=== PATIENT | female | born 1955 | race Caucasian/White ===

== ENCOUNTER → 2018-01-12 21:33 | Outpatient (CLI) | payer BC, SELFPAY ==
[2018-01-12 21:54] LABS: AST(SGOT) 24 U/L (15-37); Alanine Aminotransfer ALT/SGPT 28 U/L (13-56); Albumin, Serum 4.1 g/dL (3.2-5.0); Alkaline Phosphatase 60 U/L (45-117); Anion Gap 7 (5-15); BUN 26 mg/dL (7-18); BUN/Creat Ratio 26.5 RATIO (10-20); Chloride 103 mmol/L (98-107); Cholesterol 163 mg/dL (200); Creatinine, Serum 0.98 mg/dL (0.55-1.02); EST Glomerular Filtration Rate 61 mL/min (>60); Est Glom Filt Rate - Afr Amer 74 mL/min (>60); Globulin 4.1 g/dL (2.2-4.2); Glucose 89 mg/dL (74-106); High Density Lipoprotein 51 mg/dL; Potassium 4.4 mmol/L (3.5-5.1); Protein, Total 8.2 g/dL (6.4-8.2); Sodium Level 139 mmol/L (136-145); Triglycerides 109 mg/dL; Very Low Density Lipoprotein 22 mg/dL (5-40)
== END ==
PROVIDERS: Visit Provider Nurse Practitioner
DX: I10 Essential (primary) hypertension (principal); E78.1 Pure hyperglyceridemia
CPT/HCPCS: 80053; 80061

== ENCOUNTER → 2019-04-05 21:55 | Outpatient (CLI) | payer MEDICARE, SELFPAY ==
[2019-04-05 18:37] VITALS: BMI 31.5
[2019-04-05 22:00] LABS: Absolute Lymphocyte Count 1.97 X10^3/uL (0.83-4.51); Absolute Neutrophil Count 4.7 X10^3/uL (2.0-7.7); Basophil# 0.05 X10^3/uL; Basophil% 0.7 % (0-1); Eosinophil# 0.15 X10^3/uL; Hematocrit 41.8 % (37-47); Hemoglobin 13.4 g/dL (12.0-15.0); Lymphocyte # 1.97 X10^3/ul (4.0); Lymphocyte % 26.2 % (19-41); Mean Corp Hgb Conc 32.1 g/dL (32-36); Mean Corpuscular Volume 90.5 fL (81-99); Mean Platelet Vol. 10.9 fl (6.2-12.0); Monocyte# 0.63 X10^3/uL; Monocyte% 8.4 % (0-10); NRBC Flagged by Analyzer 0 % (0-5); Neutrophil # 4.69 X10^3/uL (2.7-7.7); Neutrophil % 62.4 % (47-70); Platelet Count 277 K/mm3 (150-450); RBC Distribution Width CV 12.7 % (11.6-14.6); RBC Distribution Width SD 41.8 fl (35.1-43.9); Red Blood Count 4.62 M/mm3 (4.2-5.4); White Blood Count 7.5 K/mm3 (4.4-11.0)
[2019-04-05 22:22] LABS: ALB/GLOB Ratio 1.1 RATIO (0.9-2.4); AST(SGOT) 20 U/L (15-37); Alanine Aminotransfer ALT/SGPT 28 U/L (13-56); Alkaline Phosphatase 39 U/L (45-117); Anion Gap 7 (5-15); BUN 26 mg/dL (7-18); BUN/Creat Ratio 27.4 RATIO (10-20); Chloride 105 mmol/L (98-107); Cholesterol 169 mg/dL (200); Creatinine, Serum 0.95 mg/dL (0.55-1.02); EST Glomerular Filtration Rate 63 mL/min (>60); Est Glom Filt Rate - Afr Amer 76 mL/min (>60); Globulin 3.6 g/dL (2.2-4.2); Glucose 115 mg/dL (74-106); High Density Lipoprotein 56 mg/dL; Potassium 4.4 mmol/L (3.5-5.1); Protein, Total 7.6 g/dL (6.4-8.2); Sodium Level 140 mmol/L (136-145); Triglycerides 131 mg/dL; Very Low Density Lipoprotein 26 mg/dL (5-40)
== END ==
PROVIDERS: Family Provider Nurse Practitioner; PCP Nurse Practitioner; Referring Provider Nurse Practitioner; Visit Provider Nurse Practitioner
DX: E78.1 Pure hyperglyceridemia (principal); I10 Essential (primary) hypertension
CPT/HCPCS: 80053; 80061; 85025

== ENCOUNTER → 2019-05-17 14:13 | Outpatient (CLI) | payer MEDICARE, SELFPAY ==
[2019-04-05 18:37] VITALS: BMI 31.5
--- NOTE | 2019-05-17 14:27 | RAD_ITS ---
HISTORY: Neck pain TECHNIQUE: Cervical spine 3 views Number of images including paperwork: 3 COMPARISON: None FINDINGS: VERTEBRAE: No acute fracture. VERTEBRAL ALIGNMENT: No traumatic subluxation. Approximate 2 mm of anterolisthesis of C3 on C4 and C4 on C5. Straightening of the cervical spine. DISKS AND JOINTS: Moderate disc space narrowing at C5-6 and C6-7. Facet arthropathy. SOFT TISSUES: Unremarkable paraspinous soft tissues. RAD/Cerv Spine 2 or 3 Views IMPRESSION: 1. No acute osseous abnormality. 2. Loss of normal cervical lordosis may be related to positioning or muscle spasm. 3. Cervical spondylosis. at [id number] Reported and signed by: Patricia Galvin MD Electronically Signed: Patricia Galvin MD at 22:47 EST Tel , Service support ,
== END ==
PROVIDERS: Family Provider Nurse Practitioner; PCP Nurse Practitioner; Referring Provider Anesthesiology Pain Medicine; Visit Provider Anesthesiology Pain Medicine
DX: M54.2 Cervicalgia (principal)
CPT/HCPCS: 72040

== ENCOUNTER → 2019-07-19 12:43 | Outpatient (CLI) | payer MEDICARE, SELFPAY ==
[2019-04-05 18:37] VITALS: BMI 31.5
--- NOTE | 2019-07-19 13:00 | RAD_ITS ---
STUDY: X-RAY - RIGHT KNEE REASON FOR EXAM: Increasing knee pain, no specific injury. TECHNIQUE: 4 view(s) of the knee. COMPARISON: None. FINDINGS: There is osteopenia. Normal visualized distal femur. Normal visualized proximal tibia and fibula. Normal proximal tibiofibular articulation. Normal medial femorotibial compartment. There is a small marginal osteophyte of the lateral tibial plateau and mild joint space narrowing of the lateral femorotibial compartment. Normal patellofemoral articulation. The soft tissue structures are unremarkable. RAD/Knee 4 or More Views IMPRESSION: Mild arthrosis of the lateral femorotibial compartment. Osteopenia. Electronically Signed: Eliseo Chand MD at 13:54 EST Tel , Service support ,
== END ==
PROVIDERS: PCP Nurse Practitioner; Referring Provider Anesthesiology Pain Medicine; Visit Provider Anesthesiology Pain Medicine
DX: M25.569 Pain in unspecified knee (principal)
CPT/HCPCS: 73564

== ENCOUNTER 2019-08-02 09:20 | Day surgery (SDC) | payer MEDICARE, SELFPAY ==
[2019-04-05 18:37] VITALS: BMI 31.5
[2019-08-02] VITALS (17 sets, daily range): BP systolic 90–162; BP diastolic 57–107; PULSE 64–87; RESP 16; TEMP 36.3–37.1; O2SAT 92–99; BMI 28.6
[2019-08-02] MEDS: Lactated Ringers 1,000 ML 100 ML IV ×2 (10:06→15:44)
[2019-08-02] MEDS: Cefazolin 2 GM in 0.9% Normal Saline 100 ML IV (11:31)
--- NOTE | 2019-08-02 11:50 | RAD_ITS ---
STUDY: X-RAY - LUMBAR SPINE REASON FOR EXAM: Female, 63 years old. INSERTION SPINAL CORD STIMULATOR TECHNIQUE: 2 intraoperative view(s) of the lumbar spine were obtained. COMPARISON: None FINDINGS: AP and lateral intraoperative views were performed as patient has undergone insertion of a spinal cord stimulator. Tips are noted at T8. No complications noted. RAD/Lumbar Spine 2 or 3 Views IMPRESSION: Insertion of a spinal cord simulator free of complication Electronically Signed: Devaughn Reed MD at 13:43 EST , Service support ,
[2019-08-02] MEDS: Bupiv/Epi 0.25% 30 ML Vial ×2 (11:58)
[2019-08-02] MEDS: Gabapentin 600 MG Tablet PO (15:26)
[2019-08-02] MEDS: HYDROmorphone 1 MG/ML Syringe 2 MG IV (15:28)
== END 2019-08-02 18:44 | disposition home or self-care (01) ==
LOC: SDC 09:20 → AC 09:21
PROVIDERS: PCP Nurse Practitioner; Referring Provider Anesthesiology Pain Medicine; Visit Provider Anesthesiology Pain Medicine
PROC: (CPT 63685; principal; 2019-08-02 10:15)
DX: M54.16 Radiculopathy, lumbar region (principal); G35 Multiple sclerosis; G89.4 Chronic pain syndrome; M54.17 Radiculopathy, lumbosacral region; M96.1 Postlaminectomy syndrome, not elsewhere classified; M51.36 Other intervertebral disc degeneration, lumbar region; M51.37 Other intervertebral disc degeneration, lumbosacral region
CPT/HCPCS: 63650 ×2; 63685; 72100; 76000; C1778; C1820; J7120; J2405

== ENCOUNTER → 2019-08-07 13:21 | Outpatient (CLI) | payer MEDICARE, SELFPAY ==
[2019-08-02 10:00] VITALS: BMI 28.6
--- NOTE | 2019-08-07 13:25 | VDLE_ITS ---
Reason For Study: Swelling RIGHT GSV is normal. CFV is compressible, spontaneous, phasic, competent and demonstrates normal augmentation. FV is compressible, spontaneous, phasic, competent and demonstrates normal augmentation. POP V is compressible, spontaneous, phasic, competent and demonstrates normal augmentation. T/P Trunk is compressible. PTV is compressible. RT PerV is compressible. Procedure Exam performed in department. A preliminary report was called and/or faxed to [facility]. Interpretation Summary Deep veins of the right lower extremity are patent and compressible segmentally. There is no evidence of right lower extremity deep vein thrombosis. Valvular competence appears intact within the proximal deep venous system on the right . The right great saphenous vein appears patent and compressible segmentally. Ordering Physician: Alcon Moreno Referring Physician: Marie Tejeda Performed By: Janeen Shi RVT
== END ==
PROVIDERS: PCP Nurse Practitioner; Referring Provider Anesthesiology Pain Medicine; Visit Provider Anesthesiology Pain Medicine
DX: M79.89 Other specified soft tissue disorders (principal)
CPT/HCPCS: 93971

== ENCOUNTER → 2019-10-10 16:39 | Outpatient (CLI) | payer MEDICARE, SELFPAY ==
[2019-08-02 10:00] VITALS: BMI 28.6
--- NOTE | 2019-10-10 16:44 | RAD_ITS ---
STUDY: X-RAY - RIGHT SHOULDER REASON FOR EXAM: Female, 64 years old. PAIN IN RIGHT SHOULDER FOR ABOUT 2 MONTHS. NO KNOWN INJURY. TECHNIQUE: 4 view(s) of the shoulder. COMPARISON: None. FINDINGS: Normal glenohumeral articulation. There is hypertrophic osteoarthrosis of the acromioclavicular joint with inferior osseous spur formation. Normal acromion. Normal humeral head and visualized proximal humerus. The soft tissue structures are unremarkable. There is no demonstrated fracture. Normal visualized pulmonary apex. RAD/Shoulder min 2 Views IMPRESSION: No acute fracture or dislocation. Degenerative changes of the AC joint. Electronically Signed: Seymour Malhotra MD at 17:08 EDT , Service support ,
== END ==
PROVIDERS: PCP Nurse Practitioner; Visit Provider Anesthesiology Pain Medicine
DX: M25.519 Pain in unspecified shoulder (principal)
CPT/HCPCS: 73030

== ENCOUNTER → 2019-12-19 09:38 | Outpatient (CLI) | payer MEDICARE, SELFPAY ==
[2019-12-06 07:52] VITALS: BMI 28.6
--- NOTE | 2019-12-19 09:39 | RAD_ITS ---
STUDY: X-RAY - LUMBAR SPINE REASON FOR EXAM: Female, 64 years old. CONTINUED LBP POST OP TECHNIQUE: 4 view(s) of the lumbar spine were obtained. COMPARISON: There are 10/01/2019 FINDINGS: There is straightening of the normal lumbar lordosis. There is severe dextroscoliosis. There is been a lumbar spine fusion and laminectomy L3-L5. There is multilevel degenerative change. There is a suggestion of loss of height at the level of L5. Flexion-extension views are provided. There is no significant change in the visualized alignment in flexion and extension and neutral views provided. There is multilevel spondylosis. Baclofen type catheter along the right pelvis with the leads extending to the thoracic spine partially visualized on this study. One terminates approximately the level of T11-T12 the other extends further up the thoracic spine. RAD/L/S Spine Min 4 Views IMPRESSION: Lumbar spine fusion. No visualized instability with flexion and extension views provided. Dextroscoliosis lumbar spine fusion laminectomy. Baclofen type pump. Summation of shadows versus loss of height L5 recommend correlation with history. Electronically Signed: Lesa Armendariz MD at 6:59 EDT Tel , Service support ,
== END ==
PROVIDERS: PCP Nurse Practitioner; Referring Provider Orthopaedic Surgery; Visit Provider Orthopaedic Surgery
DX: M54.5 Low back pain (principal)
CPT/HCPCS: 72110

== ENCOUNTER → 2020-05-14 14:51 | Outpatient (CLI) | payer MEDICARE, SELFPAY ==
[2019-12-19 10:57] VITALS: BMI 28.6
--- NOTE | 2020-05-14 14:55 | CT_ITS ---
ACR Level 3 findings have been noted. An addendum which confirms receipt of the report will follow. STUDY: CT LUMBAR SPINE WITHOUT CONTRAST REASON FOR EXAM: Female, 64 years old. BACK PAIN RADIATING TO LEFT. RADIATION DOSAGE (If Supplied By Facility): CTDIvol = ( 17.62 ) mGy, DLP = ( 591.48 ) mGycm TECHNIQUE: The patient was scanned in a multi detector CT scanner. High resolution transaxial imaging was performed. Images were obtained from to . Sagittal and coronal images were reconstructed. Individualized dose optimization techniques were used for this CT. COMPARISON: X-ray dated 12/19/2019 and 08/02/2019. FINDINGS: Normal lumbar lordosis. There is moderate dextroscoliosis centered at L2/L3. T11/T12: There is mild depression of superior endplate of T11. There is neural stimulator device with the left electrodes located at the left epidural space and left paraspinous soft tissues (sagittal image #[id number] series [id number]). This electrode has inferiorly migrated in comparison with prior examination in July 2019. The right wire is directed superiorly with the electrode collimated off the [id number]. T12/L1: There is mild disc space narrowing and endplates spondylosis. There is mild depression of superior endplate of T12. There is no demonstrated central canal or foraminal stenosis. There is moderate compression fracture at L1, grossly unchanged when compared with the prior examination x-ray examination. L1-2: There is mild disc space narrowing and endplates spondylosis. There is retrolisthesis. L2-3: There is mild disc space narrowing and endplates spondylosis. Moderate disc osteophyte complex and facet arthropathy with moderate central canal stenosis. There is mild right and moderate left foraminal stenosis. L3-4: There is mild disc space narrowing and endplates spondylosis. There is no demonstrated central canal or foraminal stenosis. There is posterior transpedicular screw fusion. L4-5: There is minimal disc space narrowing and endplates spondylosis. There is no demonstrated central canal or foraminal stenosis. There is posterior transpedicular screw fusion in place. L5-S1: There is mild disc space narrowing and endplates spondylosis. There is mild disc osteophyte complex and facet arthropathy with mild central canal stenosis. There is mild right and mild left foraminal stenosis. There is severe compression fracture at L5, grossly unchanged since prior x-ray examination. CT/Spine Lumbar without Contrast IMPRESSION: Inferior migration of left neurostimulator electrode partially at the left paraspinal soft tissues now. Mild T11, T12 fractures, indeterminate age. Chronic L1, L2 and L5 fracture. Electronically Signed: Fannie Mendiola MD at 13:56 EST Tel , Service support ,
== END ==
PROVIDERS: PCP Nurse Practitioner; Referring Provider Anesthesiology Pain Medicine; Visit Provider Anesthesiology Pain Medicine
DX: M54.9 Dorsalgia, unspecified (principal); M79.605 Pain in left leg
CPT/HCPCS: 72131

== ENCOUNTER → 2021-02-13 17:07 | Outpatient (CLI) | payer MEDICARE, OTHER, SELFPAY ==
[2021-02-13 19:14] LABS: Amphetamine Urine VISTA NEGATIVE (<1000 ng/mL); Barbiturate Urine VISTA NEGATIVE (< 200 ng/mL); Benzodiazepine Urine VISTA NEGATIVE (< 200 ng/mL); Cocaine Urine VISTA NEGATIVE (< 300 ng/mL); Ecstacy Urine VISTA NEGATIVE (< 500 ng/mL); Methadone Urine VISTA NEGATIVE (< 300 ng/mL); PCP Urine VISTA NEGATIVE (< 25 ng/mL); THC Urine VISTA NEGATIVE (< 50 ng/mL); Vista UDS pH Range 5
== END ==
PROVIDERS: PCP Family Medicine; Referring Provider Anesthesiology Pain Medicine; Visit Provider Anesthesiology Pain Medicine
DX: F11.20 Opioid dependence, uncomplicated (principal)
CPT/HCPCS: 80307